=== PATIENT | male | born 2005 | race Hispanic/Latino ===

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

== ENCOUNTER 2025-01-13 02:41 | Emergency (ER) | payer SELFPAY ==
[~2025-01-13] VITALS: Ht 180.3 cm; Wt 74.8 kg
--- NOTE | 2025-01-13 03:00 | ERN ---
ED Note History of Present Illness Stated Complaint: ALLERGIC REACTION Chief Complaint: Allergic Reaction Time Seen by MD: 02:44 Time Seen by Midlevel: 02:44 Dictation: The patient is a 19-year-old male with no significant past medical history who presents to the emergency department with complaints of rash and generalized itching onset prior to arrival. Patient reports he plays coconut lotion in a calamine lotion to his body for treatment of another rash that he has been having, reports possible psoriasis but has not been confirmed. No other complaints reported. Allergies: Coded Allergies: No Known Allergies (Unverified Allergy, Unknown, 01/13/25) Past Medical History Past Medical History: No Pertinent History Surgical History: None RN Note Reviewed/Agreed w/PFSH: Yes Review of System Dictation Constitutional: Negative for fever,chills, and weight loss Eyes: Negative for injury, pain,redness, and discharge ENT: Negative for injury,pain or swelling Cardiovascular: Negative for chest pain, palpitations, and edema Respiratory: Negative for shortness of breath, cough, and wheezing, Abdomen/GI: Negative for abdominal pain, nausea, vomiting, diarrhea, and constipation Back: Negative for injury and pain : Negative for injury, bleeding and discharge MS/Extremity: Negative for injury and deformity Skin: Negative for discoloration positive for rash Neuro: Negative for headache, weakness, numbness, tingling, and seizure Psych: Negative for suicide ideation, homicidal ideation, and hallucinations Initial Vital Sign VS Vital Signs Date Time Temp Pulse Resp B/P (MAP) Pulse Ox O2 Delivery O2 Flow Rate FiO2 01/13/25 02:42 97.9 72 18 144/86 100 Room Air Physical Exam Dictation Vital Signs reviewed General Appearance: Alert, oriented x 3, no acute distress, well developed, nourished. Head and Face: non-traumatic. Eyes: PERRL, pink conjunctivas, eyelid no trauma, anterior chamber with arcus senilis. Ears: Pinnas intact and no signs of trauma or erythema ear canals clear and no discharge TM no erythema Nose: No discharge, no bleeding. Oropharynx: Mouth normal, tongue pink. pharynx clear,no erythema, tonsils no exudates, no abscesses noted, mucous membrane moist Neck: Supple, non-tender, no thyromegaly, no masses, no JVD, no bruits Breast:Deferred Chest:No tenderness, no crepitus, no paradoxical movement, no retractions Lungs:Clear, well-ventilated, symmetric, no rales, no wheezing, no rhonchi, no stridor, good breath sounds bilaterally Heart: Regular rate, regular rhythm, no murmur, no gallops Vascular: no peripheral edema, Abdomen: Soft, positive bowel sounds, nondistended, no guarding, nontender, no rebound, no masses no hepatomegaly, no splenomegaly, no Hargrove's sign, no hernias. Rectal: Deferred Genital: Deferred Neurological: Normal speech, motor function intact, sensory function intact Musculoskeletal: Neck nontender, full range of motion, back nontender, full range of motion, Extremities: nontender, full range of motion Skin: Color pink, dry, no turgor, no rash, no lacerations, no abrasions, no contusions. Generalized dry red scaly rash, small hives noted Lymphatic: Deferred Results (Laboratory/Radiology) Labs Reviewed?: Yes ED Course ED Course Orders Procedure Category Date Status Time Diphenhydramine Hcl PHA 01/13/25 Complete (Benadryl Inj) 03:00 Famotidine 20mg Vial PHA 01/13/25 Complete (Pepcid 20mg Vial) 03:00 Methylprednisolone PHA 01/13/25 Complete Succ 125mg (Solu-Medr 03:00 Current Medications Medications (Trade) Dose Ordered Sig/Yuriy Route PRN Reason Start Time Stop Time Status Last Admin Dose Admin Diphenhydramine HCl (BENAdryl INJ) 25 mg ONCE ONCE IV 01/13/25 03:00 01/13/25 03:02 DC 01/13/25 03:15 Famotidine (Pepcid 20mg Vial) 20 mg ONCE ONCE IV 01/13/25 03:00 01/13/25 03:02 DC 01/13/25 03:14 Methylprednisolone Sodium Succinate (Solu-medROL 125MG) 125 mg ONCE ONCE IVP 01/13/25 03:00 01/13/25 03:02 DC 01/13/25 03:14 Vital Signs Date Time Temp Pulse Resp B/P (MAP) Pulse Ox O2 Delivery O2 Flow Rate FiO2 01/13/25 02:42 97.9 72 18 144/86 100 Room Air Medical Decision Making MDM MDM: The patient is a 19-year-old male with no significant past medical history who presents to the emergency department with complaints of rash and generalized itching onset prior to arrival. Patient reports he plays coconut lotion in a calamine lotion to his body for treatment of another rash that he has been having, reports possible psoriasis but has not been confirmed. No other complaints reported. DX & DISP Disposition: Discharge Departure Impression: Primary Impression: Contact dermatitis Condition: Stable Scripts Loratadine (Loratadine) 10 Mg Tablet 1 TAB PO DAILY for allergy symptoms for 30 Days, #30 TAB 0 Refills Prov: FEDERICO ELLER MD 01/13/25 Prednisone (Prednisone) 5 Mg Tablet 1 TAB PO BID for 7 Days, #14 TAB 0 Refills Prov: FEDERICO ELLER MD 01/13/25 Additional Instructions: FOLLOW-UP WITH PRIMARY CARE PROVIDER IN 1 TO 2 DAYS. TAKE MEDICATIONS DIRECTED HERE IN THE EMERGENCY ROOM. OKAY TO CONTINUE HOME MEDICATIONS UNLESS OTHERWISE DISCUSSED DURING YOUR VISIT IN THE EMERGENCY ROOM TODAY. RETURN TO YOUR NEAREST EMERGENCY ROOM IF SYMPTOMS WORSEN OR IF THERE IS NO IMPROVEMENT. CALL 911 IF YOU NEED IMMEDIATE ASSISTANCE. TAKE TYLENOL [id number] NEEDED AND IF NO CONTRAINDICATIONS ARE PRESENT. INCREASE ORAL HYDRATION. A WOUND CULTURE OR URINE CULTURE WAS ORDERED HERE IN THE EMERGENCY ROOM DEPARTMENT PLEASE FOLLOW-UP WITH PRIMARY CARE PROVIDER AND ADVISE THEM TO GET REPEAT PORTS FROM OUR FACILITY. IF YOU HAD ANY TAYLOR WRAP/SPLINTS THAT WERE APPLIED HERE, PLEASE DO NOT REMOVE THEM UNTIL YOU SEE YOUR PRIMARY CARE OR SPECIALTY. REFERRALS: Referrals: SELF,REFERRAL (PCP) CAMDEN CARPENTER MD Time of Disposition: 03:39 [place]ER[place] January 13, 2025 03:00 FEDERICO ELLER MD January 13, 2025 03:42
[2025-01-13] MEDS: FAMOTIDINE 20MG VIAL IV ONE (03:14)
[2025-01-13] MEDS: Solu-medROL 125MG VIAL IVP ONE (03:14)
[2025-01-13] MEDS: DiphenhydrAMINE HCL 50 MG/ML VIAL IV ONE (03:15)
[2025-01-13] MEDS ORDERED: LORA10TA7 PO (03:42)
[2025-01-13] MEDS ORDERED: PRED5TAB PO (03:42)
[2025-01-13 03:53] VITALS: BP 119/68; PULSE 68; RESP 15; TEMP 98; O2SAT 98
== END 2025-01-13 03:56 | disposition home or self-care (01) ==
LOC: EDH 02:41
DX: L25.9 Unspecified contact dermatitis, unspecified cause (principal)
CPT/HCPCS: 99284; 96374; 96375; J2919; J1200; J3490